=== PATIENT | female | born 1935 | race Caucasian/White ===

== ENCOUNTER → 2018-04-09 | Outpatient (CLI) | payer MEDICARE ==
--- NOTE | 2018-04-09 13:02 | CT ---
EXAMINATION TYPE: CT brain wo con DATE OF EXAM: 04/09/2018 COMPARISON: None HISTORY: Abnormal weight loss CT DLP: [address] of the brain was performed. The ventricles, basal cisterns and sulci overlying the cerebral convexities demonstrate mild enlargem ent. There is no evidence for intracranial hemorrhage or sulcal effacement. There is decreased attenuation about the periventricular white matter and deep white matter of both c erebral hemispheres, compatible with chronic small vessel ischemia. Differential diagnosis does inclu de demyelination. No mass effects are seen.No midline shift. Osseous calvarium is intact. If symptoms persist consider MRI. IMPRESSION: 1. Age related atrophic and chronic small vessel ischemic change without acute intracranial process s een at this time.
--- NOTE | 2018-04-09 15:40 | US ---
EXAMINATION TYPE: US carotid duplex BILAT DATE OF EXAM: 04/09/2018 COMPARISON: NONE CLINICAL HISTORY: R55 syncope. EXAM MEASUREMENTS: RIGHT: Peak Systolic Velocity (PSV) cm/sec ----- Right CCA: 57.5 ----- Right ICA: 94.3 ----- Right ECA: 232.2 ICA/CCA ratio: 1.6 RIGHT: End Diastole cm/sec ----- Right CCA: 14.7 ----- Right ICA: 26.7 ----- Right ECA: 23.1 LEFT: Peak Systolic Velocity (PSV) cm/sec ----- Left CCA: 78.2 ----- Left ICA: 87.4 ----- Left ECA: 62.2 ICA/CCA ratio: 1.1 LEFT: End Diastole cm/sec ----- Left CCA: 15.1 ----- Left ICA: 23.0 ----- Left ECA: 0.0 VERTEBRALS (direction of flow): Right Vertebral: Antegrade Left Vertebral: Antegrade Rhythm: Normal No significant velocity elevations in bilateral ICA's. ECA elevated on right. IMPRESSION: No hemodynamically significant stenosis identified. Criteria for Assigning % of Stenosis / Diameter reduction (Estimation based on the indirect measurements of the internal carotid artery velocities (ICA PSV). 1. Normal (no stenosis)=ICA PSV < 125 cm/s: ratio < 2.0: ICA EDV<40 cm/s. 2. Less than 50% stenosis=ICA PSV < 125 cm/s: ratio < 2.0: ICA EDV<40 cm/s. 3. 50 to 69% stenosis=ICA PSV of 125 to 230 cm/s: ration 2.0 ? 4.0: ICA EDV 40-100 cm/s. 4. Greater than 70% stenosis to near occlusion= ICA PSV > 230 cm/s: ratio > 4.0: ICA EDV > 100 cm/s. 5. Near occlusion= ICA PSV velocities may be low or undetectable: variable ratio and ICA EDV. 6. Total occlusion=unable to detect flow.
--- NOTE | 2018-04-09 17:14 | CT ---
EXAMINATION TYPE: CT ChestAbdPelvis wo con DATE OF EXAM: 04/09/2018 INDICATION: Abnormal weight loss COMPARISON: None CT DLP: 839 mGycm CONTRAST: Noncontrast study. TECHNIQUE: Axial images at 5 mm thick sections. Reconstructed images in the coronal plane. Delayed images through the kidneys. FINDINGS: CT CHEST: There is visualized is There is a faint 0.6 cm nodule in the posterior lateral left lung. Series 4 image 31. There is a 0.5 cm peripheral based nodule in the left lung base. Series 4 image 40. No enlarged mediastinal or hilar adenopathy is evident. The ascending aorta diameter at the level of the main pulmonary artery is 3.1 cm. The main pulmonary artery diameter at the bifurcation is 2.3 cm. Small hiatal hernia is present. CT ABDOMEN: Liver: Normal Spleen: Normal Pancreas: Normal Adrenal glands: The adrenal glands are normal. Gallbladder: Normal Kidneys: Left kidney appears small compared to the right. No masses are evident. No hydronephrosis is present. No cysts are present. No renal stones are evident. Aorta: Vascular calcification is within the aorta. Inferior vena cava: Normal. CT PELVIS: Loops of bowel within the abdomen are unremarkable. Multiple diverticuli are within the sigmoid colon . No acute diverticulitis is evident.. Study is without oral contrast limiting bowel evaluation. Appendix: Normal as visualized. Urinary bladder: Normal. Genitourinary structures: Uterus and ovaries are not identified. Osseous structures: No suspicious lytic or sclerotic lesions. Facet degenerative changes are within t he lumbar spine. Degenerative disc changes lumbar spine. Inferior plate of 11 is mild compression wit hout posterior wall displacement IMPRESSIONS: 1. Couple of nonspecific nodules. Short-term follow-up in 3-6 months is recommended to reevaluate. 2. Diverticulosis without acute diverticulitis. 3. Small hiatal hernia.
== END ==
LOC: RADCTMAIN 07:49
PROVIDERS: ATTEND Family Medicine
DX: G31.1 Senile degeneration of brain, not elsewhere classified (principal); I67.82 Cerebral ischemia; K57.90 Diverticulosis of intestine, part unspecified, without perforation or abscess without bleeding; K44.9 Diaphragmatic hernia without obstruction or gangrene; R91.8 Other nonspecific abnormal finding of lung field; R55 Syncope and collapse
CPT/HCPCS: 36415; 70450; 71250; 74176; 82565; 84520; 93880